=== PATIENT | female | born 1995 | race Caucasian/White ===

== ENCOUNTER 2016-11-30 13:52 | Inpatient (IN) | payer OTHER ==
[~2016-11-30] VITALS: Ht 160 cm; Wt 117.9 kg
[~2016-11-30 13:52] MED LIST: BLM PO; ESTRACE2 M1 PO; MOTRIN 600 MG600 MG PO; PREDNISONE 20MG20 MG PO; PREDNISONE10 MG PO; VALACYCLOVIR1 GM PO
--- NOTE | 2016-11-30 13:57 | NUR ---
21 Y/O FEMALE C/O "NOT FEELING WELL, MY ASTHMA ACTING UP". REPORTS HX BRONCHITIS AND PNEUMONIA AND THIS FEELS "MORE LIKE PNEUMONIA". ABLE TO COMPLETE SENTENCES IN TRIAGE. WHEEZING HEARD/VOICE HOARSE. BEST 02 IN TRIAGE 91% AFEBRILE
--- NOTE | 2016-11-30 14:17 | NUR ---
CLEAR TOP URINE SENT TO LAB. 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 O2 SAT 90-92% ROOM AIR AND TACHY RATE 100'S
--- NOTE | 2016-11-30 14:22 | NUR ---
CONSTANZA SINGH IN ROOM FOR MAGIAL
[2016-11-30] MEDS ORDERED: PROAIR HFA8.5 GM INH (14:27)
[2016-11-30] MEDS ORDERED: ALBUTEROL2.5 MG/3 M INH/SOL (14:27)
--- NOTE | 2016-11-30 14:29 | ED DYSPNEA/ASTHMA COMPLAINT ---
History of Present Illness General Chief Complaint: Wheezing/Asthma Stated Complaint: ASTHMA Source: patient, family Exam Limitations: no limitations Vital Signs & Intake/Output Vital Signs & Intake/Output Vital Signs Date Time Temp Pulse Resp B/P Pulse O2 O2 Flow FiO2 Ox Delivery Rate 11/30 1752 97.0 110 22 87 Nasal 6.0L Cannula 11/30 1708 94 Nasal 6.0L Cannula 11/30 1640 97.0 103 24 136/81 94 Nasal 6.0L Cannula 11/30 1530 Nasal 4.0L Cannula 11/30 1423 94 Nasal 2.0L Cannula 11/30 1422 108 26 164/104 94 Nasal 2.0L Cannula 11/30 1354 96.9 127 20 160/98 91 Room Air Allergies Coded Allergies: nut - unspecified (Mild, RASH 11/30/16) Uncoded Allergies: TREES DOGS CATS (RASH ON FACE 02/13/15) Reconcile Medications Albuterol Sulfate (Proair Hfa) 90 MCG HFA.AER.AD 2 PUF INH Q4-6 PRN PRN BREATHING PROBLEMS (Reported) Albuterol Sulfate 2.5 MG/3 ML (0.083 %) VIAL.NEB 1 Vial INH/RORO Q4P PRN BREATHING PROBLEMS (Reported) Estradiol (Estrace) 2 MG TABLET 1 TAB PO DAILY ESTROGEN (Reported) Triage Note: 21 Y/O FEMALE C/O "NOT FEELING WELL, MY ASTHMA ACTING UP". REPORTS HX BRONCHITIS AND PNEUMONIA AND THIS FEELS "MORE LIKE PNEUMONIA". ABLE TO COMPLETE SENTENCES IN TRIAGE. WHEEZING HEARD/VOICE HOARSE. BEST 02 IN TRIAGE 91% AFEBRILE Triage Nurses Notes Reviewed? yes Onset: Gradual Duration: worse persistent since (3-4 DAYS) Timing: recent history Severity: moderate, severe Activities at Onset: none Prior Episodes/Possible Cause: frequent episodes : No Patient currently breastfeeds: No HPI: Patient is a 21-year-old female with history of asthma, takes daily Advair and as needed albuterol for her asthma coming into the emergency department with family members with chief complaining of increasing nonproductive cough, shortness of breath with exertion and has been getting worse over the past several days. Patient was recently admitted for pneumonia 2 months ago knows it was hospitalized for 5 days. They report that it took them 5 days to get her oxygen above 90% on room air. Patient does not wear oxygen at home. Denies history of recent travel, no recent surgeries, denies any hormonal supplementation. No history of DVT or PE. Cough is nonproductive. Nothing seems to help it. She's been taking [id number] complication without relief. She feels like her chest is tight. Denies actual chest pain. No palpitations. She reports using her nebulizer treatment 6 times in a 4 hour window this morning. She reports little to no relief. She reports that this feels similar to pneumonia she's had in the past. Denies any unilateral leg swelling. (CLARISSA HENDRIX) Past History Travel History Traveled to [place] past 21 day No Medical History Any Pertinent Medical History? see below for history Neurological: HEADACHES EENT: NONE Cardiovascular: NONE Respiratory: asthma Gastrointestinal: NONE Hepatic: NONE Renal: NONE Musculoskeletal: fracture, LEG FX Psychiatric: NONE Endocrine: NONE Blood Disorders: NONE Cancer(s): NONE DIRECTOR FOOD AND BEVERAGE/Reproductive: ANTIGEN SENSITIVITY SYNDROME Tetanus Vaccine: 02/13/15 Surgical History Surgical History: hernia repair-umbilical Psychosocial History What is your primary language Latvian Tobacco Use: Never used Family History Hx Contributory? No (CLARISSA HENDRIX) Review of Systems Review of Systems Constitutional: Reports: malaise. Comments Review of systems: See HPI, All other systems negative. Constitutional, no chills fever or weight loss HEENT: No visual changes no sore throat no congestion Cardiovascular: No chest pain ,palpitation , orthopnea or ankle swelling Skin, no jaundice no rashes Respiratory: No sputum or hemoptysis GI: No nausea no vomiting : No dysuria No hematuria Muscle skeletal: no back pain, no neck pain, Neurologic: No numbness no confusion Psych: No stress anxiety or depression,. Heme/endocrine: No bruising no bleeding no polyuria or polydipsia Immunology: No splenectomy or history of AIDS (CLARISSA HENDRIX) Physical Exam Physical Exam General Appearance: well developed/nourished, no apparent distress, alert, awake , comfortable Respiratory: wheezing Comments: Obese Person in no acute distress HEENT: Normal EENT exam, extraocular motion intact, no nystagmus. Pupils equally round and reactive to light and accommodation. Nose is atraumatic. External auditory canal and Tympanic membranes clear. Pharynx normal. No swelling or edema. Moist oral mucosa. Neck: Supple, no lymphadenopathy, normal range of motion without pain or tenderness Back: NontendeR Cardiovascular: Tachycardic rate and rhythms no murmurs rubs or gallops, normal JVP Respiratory: Chest nontender. No respiratory distress.diffuse wheezing to auscultation bilaterally Extremity: No edema, no calf tenderness to palpation, normal and equal pulses. Neuro: Alert oriented x3 Skin: No appreciable rash on exposed skin, skin is warm and dry. Psych: Mood and affect is normal, memory and judgment is normal. Core Measures ACS in differential dx? No Severe Sepsis Present: No Septic Shock Present: No (CLARISSA HENDRIX) Progress Differential Diagnosis: asthma, AMI, bronchitis, CHF, musculoskeletal pain, pulmonary embolism, pneumonia, pneumothorax, PULMONARY EMBOLUS Plan of Care: Orders Procedure Date/time Status Regular Diet 11/30 D Active Admit to inpatient 11/30 1745 Active Pathway - chart 11/30 1726 Active House Staff 11/30 1726 Active Patient Data 11/30 1726 Active Code Status 11/30 1726 Active Patient Data 11/30 1658 Active BLOOD CULTURE 11/30 1511 Active Admit to inpatient 11/30 1459 Active EKG 11/30 1431 Active ARTERIAL BLOOD GAS (GEN) 11/30 1430 Active Telemetry/Research Program Coordinator 11/30 1429 Active PARTIAL THROMBOPLASTIN TIME 11/30 1427 Complete PROTHROMBIN TIME 11/30 1427 Complete MAGNESIUM 11/30 1427 Complete D-DIMER 11/30 1427 Complete COMPREHENSIVE METABOLIC PANEL 11/30 1427 Complete CBC WITHOUT DIFFERENTIAL 11/30 1427 Complete Intake & Output 11/30 1422 Active URINE 11/30 1410 Complete VTE Mechanical Prophylaxis 11/30 UNK Active Current Medications Sig/Mohinder Start time Last Medication Dose Stop Time Status Admin Acetaminophen 325 MG Q6 PRN 11/30 1730 UNVr (Tylenol) Morphine Sulfate 2 MG Q4 PRN 11/30 1730 UNVr (Morphine) Oxycodone HCl 5 MG Q6 PRN 11/30 1730 UNVr (Roxicodone) Enoxaparin Sodium 40 MG DAILY 11/30 1725 UNVr (Lovenox) Albuterol Sulfate 3 ML ONCE ONE 11/30 1600 CAN (Proventil) 11/30 1601 Albuterol Sulfate 3 ML ONCE ONE 11/30 1600 CAN (Proventil) 11/30 1601 Albuterol Sulfate 3 ML ONCE ONE 11/30 1600 CAN (Proventil) 11/30 1601 Laboratory Tests 11/30/16 1525: pH 7.40, pCO2 35, pO2 76 L, HCO3 22, ABG O2 Sat (Measured) 95.0 L, Carboxyhemoglobin 0.3 L, O2 Concentration % 4L, O2 Delivery Method NC, Phlebotomy Draw Site RIGHT RADIAL 11/30/16 1500: Anion Gap 11, Estimated GFR > 60, BUN/Creatinine Ratio 13.8, Glucose 104 H, Calcium 10.0, Magnesium 2.0, Total Bilirubin 0.4, AST 17, ALT 36, Alkaline Phosphatase 72, Total Protein 7.1, Albumin 4.2, Globulin 2.9, Albumin/Globulin Ratio 1.4, PT 11.2, INR 1.07, APTT 33, D-Dimer < 200, CBC w Diff NO MAN DIFF REQ , RBC 5.16, MCV 82.6, MCH 27.8, RDW 14.6 H, MPV 8.0, Gran % 57.9, Lymphocytes % 25.5, Monocytes % 5.8, Eosinophils % 10.1 H, Basophils % 0.7, Absolute Granulocytes 5.9, Absolute Lymphocytes 2.6, Absolute Monocytes 0.6, Absolute Eosinophils 1.0, Absolute Basophils 0.1, PUBS MCHC 33.7 11/30/16 1417: Urine Test NEGATIVE Microbiology 11/30 1548 BLOOD: Blood Culture - RECD 11/30 1540 BLOOD: Blood Culture - RECD Diagnostic Imaging: Viewed by Me: Radiology Read. Discussed w/RAD: Radiology Read. CXR Impression: LEFT LOWER LOBE PNEUMONIA Initial ED EKG: SINUS TACHYCARDIA Comments: 11/30/2016 2:43:01 PMOn arrival patient hypoxic on room air to 85%, diffuse wheezing with mild respiratory distress. Patient given DuoNeb treatment with IV SOLU Medrol. We will obtain an ABG, CBC, CMP. Patient will go for a chest x- ray to see if pneumonia is developing. Patient afebrile this time. 11/30/2016 3:03:36 PM patient remains in the low 90s upper 80s on 6 L nasal cannula. Per respiratory therapist she doesn't think continuous nebulizers will help us patientS wheezing has improved. Moving better air. Patient will need continued treatments throughout her visit along with steroids. 11/30/2016 5:43:08 PM patient will be admitted to general medicine for peripheral admission for pneumonia, hypoxia. Patient requiring serial DuoNeb treatments, IV steroids, IV antibiotics. Pulmonology consultation. Discharge at this time would be medically harmful. Patient informed of all lab work results and imaging study results. D-dimer is negative. (CLARISSA HENDRIX) Departure Departure Time of Disposition: 1553 Disposition: STILL A PATIENT Condition: Stable Clinical Impression Primary Impression: Pneumonia Qualifiers: Pneumonia type: due to unspecified organism Laterality: left Lung location: lower lobe of lung Qualified Code: J18.1 - Lobar pneumonia, unspecified organism Secondary Impressions: Asthma exacerbation, Hypoxia Referrals: MALLORIE FRENCH,SHEYLA (PCP/Family) Departure Forms: Customer Survey General Discharge Information Admission Note Spoke With: DEVEN CAIN MD Documentation of Exam: Documentation of any treatments & extenuating circumstances including Concerns Regarding Discharge (functional status, medication knowledge or non-compliance, living conditions, etc.) that warrant an admission rather than observation: Patient requiring supplemental oxygen which is new for this patient, IV steroids , IV antibiotics, blood cultures to return. Pulmonology consultation. Discharge at this time would be medically harmful as patient's oxygen on room air dips to 85% while being stationary. (CLARISSA HENDRIX) PA/ELECTROTHERAPIST Co-Sign Statement Statement: ED Attending supervision documentation- [X] I saw and evaluated the patient. I have also reviewed all the pertinent lab results and diagnostic results. I agree with the findings and the plan of care as documented in the PA's/ELECTROTHERAPIST's documentation. [X] I have reviewed the ED Record and agree with the PA's/ELECTROTHERAPIST's documentation. [] Additions or exceptions (if any) to the PAs/ELECTROTHERAPIST's note and plan are summarized below: [] (RUDI FRENCH,GEETA Dow) Critical Care Note Critical Care Note Critical Care Time: 30-74 min (CLARISSA HENDRIX)
--- NOTE | 2016-11-30 15:05 | NUR ---
LG BORE IV ESTABLISHED FOR POSSIBLE CTA. LABS DRAWN AND SENT (BLUE, SSTX2, LAV) AND RESP THERAPIST PAGED FOR TX. PT REMAINS 90-91% ON 2LNC AND TITRATED UP TO 4LNC AND O2 SAT 94-95% AT THIS TIME. MEDICATED WITH SOLUMEDROL PER [facility] FAMILY AT BEDSIDE.
--- NOTE | 2016-11-30 15:09 | RADIOLOGY REPORT ---
EXAMINATION: XR CHEST 2 VIEWS CLINICAL INFORMATION: Wheezing and shortness of breath; question pneumonia or asthma exacerbation. COMPARISON: Chest radiographs dated 12/03/2015. TECHNIQUE: Frontal and lateral views of the chest were obtained. FINDINGS: The heart, great vessels, pulmonary vasculature and mediastinum are normal. There is an early infiltrate at the left base on the frontal view. The right lung field appears clear. There is no pleural effusion or pneumothorax. There is no acute osseous abnormality. IMPRESSION: Findings are consistent with an early left base infiltrate. Recommend short-term follow-up chest radiographs to ensure clearance. A preliminary report was provided by the manufacturers agent on 11/30/2016.
[2016-11-30 15:29] LABS: ABSOLUTE BASOPHIL COUNT 0.1 /CUMM (0.0-0.2); ABSOLUTE GRANULOCYTE CT 5.9 /CUMM (1.4-6.5); ABSOLUTE LYMPH COUNT 2.6 /CUMM (1.2-3.4); ABSOLUTE MONOCYTE COUNT 0.6 /CUMM (0.10-0.60); BASOPHIL % 0.7 % (0.0-2.0); EOSINOPHIL % 10.1 % (0-5); GRANULOCYTE % 57.9 % (42.2-75.2); HEMATOCRIT 42.6 % (37-47); MEAN CORPUSCULAR HGB 27.8 PG (27.0-31.0); MEAN CORPUSCULAR HGB CONC 33.7 G/DL (33.0-37.0); MEAN CORPUSCULAR VOLUME 82.6 FL (81.0-99.0); PLATELET COUNT 367 /CUMM (130-400); RBC DISTRIBUTION WIDTH 14.6 % (11.5-14.5); RED BLOOD CELL CT 5.16 /CUMM (4.20-5.40); WHITE BLOOD CELL COUNT 10.1 /CUMM (4.8-10.8)
[2016-11-30 15:33] LABS: PT 11.2 SEC (9.4-12.5); PTT 33 SEC (25-37)
--- NOTE | 2016-11-30 16:23 | NUR ---
MEDICATED WITH ZITHRO PER [facility]
--- NOTE | 2016-11-30 17:02 | History & Physical ---
EPIFANIO FRENCH,SIOBHAN 11/30/16 1692: General Information and HPI MD Statement: I have seen and personally examined GEMINI LEMOS and documented this H&P. The patient is a 21 year old F who presented with shortness of breath and cough. Source of Information: patient, family Exam Limitations: no limitations History of Present Illness: 21-year-old female with past medical history of asthma and a recent admission for pneumonia 2 months ago, came into the emergency department with history of 2 days of worsening shortness of breath, productive cough. According to patient, and her father, who was present during the interview, patient was in her usual state of health after being discharged from another hospital for pneumonia on antibiotic about 2 months ago. She required IV antibiotics and steroids for a total of 5 days in the hospital for that episode. She started developing cough with greenish sputum and shortness of breath since 2 days. She has a history of asthma and has been taking inhalers multiple times (according to patient, her results of times in the past 2 days), but could not relieve her symptoms. She did mention that she felt heaviness over her chest when her shortness of breath is worse, which has improved now. She denies any fever, chills, headache, chest pain, palpitation, tiredness, any sick contacts, recent travels, rash, swelling of her feet. 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 Allergies/Medications Allergies: Coded Allergies: nut - unspecified (Mild, RASH 11/30/16) Uncoded Allergies: TREES DOGS CATS (RASH ON FACE 02/13/15) Home Med list Albuterol Sulfate (Proair Hfa) 90 MCG HFA.AER.AD 2 PUF INH Q4-6 PRN PRN BREATHING PROBLEMS (Reported) Albuterol Sulfate 2.5 MG/3 ML (0.083 %) VIAL.NEB 1 Vial INH/RORO Q4P PRN BREATHING PROBLEMS (Reported) Estradiol (Estrace) 2 MG TABLET 1 TAB PO DAILY ESTROGEN (Reported) Past History Travel History Traveled to [place] past 21 day No Medical History Neurological: HEADACHES EENT: NONE Cardiovascular: NONE Respiratory: asthma Gastrointestinal: NONE Hepatic: NONE Renal: NONE Musculoskeletal: fracture, LEG FX Psychiatric: NONE Endocrine: NONE Blood Disorders: NONE Cancer(s): NONE CELL OPERATOR/Reproductive: ANTIGEN SENSITIVITY SYNDROME Tetanus Vaccine: 02/13/15 Surgical History Surgical History: hernia repair-umbilical Past Family/Social History Psychosocial History Where do you live? Home Who Do You Live With? parent Primary Language: British Smoking Status: Never Smoked ETOH Use: denies use Illicit Drug Use: denies illicit drug use Functional Ability ADLs Independent: dressing, eating, toileting, bathing. Ambulation: independent IADLs Independent: shopping, housework, finances, food prep, telephone, transportation , medication admin. Employment History Employment Employed Profession/Employer Restaurant Kitchen Manager Review of Systems Review of Systems Constitutional: Reports: see HPI. EENTM: Reports: no symptoms. Cardiovascular: Reports: no symptoms. Respiratory: Reports: see HPI. GI: Reports: no symptoms. Genitourinary: Reports: no symptoms. Musculoskeletal: Reports: no symptoms. Skin: Reports: no symptoms. Neurological/Psychological: Reports: no symptoms. Hematologic/Endocrine: Reports: no symptoms. Exam & Diagnostic Data Last 24 Hrs of Vital Signs/I&O Vital Signs Date Time Temp Pulse Resp B/P Pulse O2 O2 Flow FiO2 Ox Delivery Rate 11/30 2005 97.0 101 18 132/78 97 Nasal 6.0L Cannula 11/30 1943 104 22 93 Nasal 6.0L Cannula 11/30 1837 97.0 101 18 138/83 94 Nasal 6.0L Cannula 11/30 1752 97.0 110 22 87 Nasal 6.0L Cannula 11/30 1708 94 Nasal 6.0L Cannula 11/30 1640 97.0 103 24 136/81 94 Nasal 6.0L Cannula 11/30 1530 Nasal 4.0L Cannula 11/30 1423 94 Nasal 2.0L Cannula 11/30 1422 108 26 164/104 94 Nasal 2.0L Cannula 11/30 1354 96.9 127 20 160/98 91 Room Air Intake & Output 11/30 1600 11/30 0800 11/30 0000 Intake Total Output Total Balance Patient 117.934 kg Weight Last 24 Hrs of Labs/Murali: Laboratory Tests 11/30/16 1525: pH 7.40, pCO2 35, pO2 76 L, HCO3 22, ABG O2 Sat (Measured) 95.0 L, Carboxyhemoglobin 0.3 L, O2 Concentration % 4L, O2 Delivery Method NC, Phlebotomy Draw Site RIGHT RADIAL 11/30/16 1500: Anion Gap 11, Estimated GFR > 60, BUN/Creatinine Ratio 13.8, Glucose 104 H, Calcium 10.0, Magnesium 2.0, Total Bilirubin 0.4, AST 17, ALT 36, Alkaline Phosphatase 72, Total Protein 7.1, Albumin 4.2, Globulin 2.9, Albumin/Globulin Ratio 1.4, PT 11.2, INR 1.07, APTT 33, D-Dimer < 200, CBC w Diff NO MAN DIFF REQ , RBC 5.16, MCV 82.6, MCH 27.8, RDW 14.6 H, MPV 8.0, Gran % 57.9, Lymphocytes % 25.5, Monocytes % 5.8, Eosinophils % 10.1 H, Basophils % 0.7, Absolute Granulocytes 5.9, Absolute Lymphocytes 2.6, Absolute Monocytes 0.6, Absolute Eosinophils 1.0, Absolute Basophils 0.1, PUBS MCHC 33.7 11/30/16 1417: Urine Test NEGATIVE Microbiology 11/30 2101 NASOPHARYN: Influenza Virus A & B Rapid Smear - RECD 11/30 1945 URINE ROUT: Legionella Antigen - COLB 11/30 1945 URINE ROUT: Streptococcus pneumoniae Antigen (M - COLB 11/30 1548 BLOOD: Blood Culture - RECD 11/30 1540 BLOOD: Blood Culture - RECD Diagnostic Data CXR Results Findings are consistent with an early left base infiltrate. Recommend short-term follow-up chest radiographs to ensure clearance. A preliminary report was provided by the certified phlebotomy technician on 11/30/2016. DICTATED BY: JESSIE GAFFNEY MD DATE/TIME DICTATED:11/30/161499 RESIDENTIAL FIELD MANAGER:LULA DATE/TIME TRANSCRIBED:11/30/161499 Other Results Physical examnination: General: obese patient, not in distress Head: Normocephalic, atraumatic Eyes: Pupils normal in size, regular, reacting to light and accommodation, EOM normal Ears: B/l normal on inspection Nose: Normal on inspection Throat/mouth: Moist mucosa Neck: Supple, full range of motion, no thyromegaly Heart: Regular rate, regular rhythm Lung: breath sound bilaterally with wheezes present, jacqueline over the back and base of lungs Abd: Soft, non-tender, no distention appreciated Back: Normal range of motion Extremities: Normal knee exam bilaterally, no pedal edema, Distal neurovascular intact Neurologic: Alert, oriented x3, Cranial exam grossly intact, Speech is clear and coherent Skin: Warm and dry Psychiatric: Calm, cooperative, coherant Assessment/Plan Assessment: 21-year-old female with past medical history of asthma and a recent admission for pneumonia 2 months ago, came into the emergency department with history of 2 days of worsening shortness of breath, productive cough. She was tachycardic to 127, tachypneic at 20, blood pressure was 160/98, temperature 96.9 and was saturating at 76% on room air upon admission to the emergency department, her ABG showed hypoxia with PO2 of 76, lab was only significant for high eosinophilia 10.1%, no leukocytosis.Chest x-ray is consistent with early left base infiltrate, suggestive of pneumonia. Blood and sputum cultures were sent. Patient received nebulizations, magnesium sulfate, IV antibiotics in the emergency department. Patient is currently being managed in the general medical floor for the following issues: #Acute hypoxic respiratory failure, secondary to asthma exacerbation and possible community-acquired pneumonia With vitals mentioned above, and hypoxia prone by her ABG, patient does seem to have respiratory failure. The reason for her failure could be due to asthma exacerbation, at the same time, could be due to developing community-acquired pneumonia. -Tolerate saturations above 92% -Total respiratory care/nebs -IV antibiotics to cover community-acquired pneumonia -IV steroids Solu-Medrol 40 MG every 12 hours, with a plan to taper according to patient's -We'll check a flu swab, urine Legionella and strep -Follow up blood and sputum cultures and plan to taper antibiotics accordingly -Pulmonary consultation with her office technology instructor Dr. Reilly in the morning #Diet regular diet #DVT prophylaxis subcutaneous Lovenox #Full CODE STATUS As Ranked By This Provider Problem List: 1. Asthma exacerbation 2. Pneumonia Qualifiers Pneumonia type: due to unspecified organism Laterality: left Lung location: lower lobe of lung Qualified Code: J18.1 - Lobar pneumonia, unspecified organism Core Measures/Miscellaneous Acute Coronary Syndrome ACS Diagnosis: No Cerebrovascular Accident CVA/TIA Diagnosis: No Congestive Heart Failure CHF Diagnosis: No Venous Thromboembolism VTE Risk Factors: Oral contraception No Mech VTE prophylaxis d/t: No contraindications No VTE Pharm Prophylaxis d/t: No contraindications VTE Diagnosis: No VTE Type: NONE VTE Confirmed by (Test): NONE Severe Sepsis Severe Sepsis Present: No Septic Shock Septic Shock Present: No Miscellaneous Documentation Attending Case Discussed With: ANT FRENCH,DEVEN Em Primary Care Physician: SHEYLA NOBLES MD Patient sees these Specialists Internal medicine Level of Patient Care: General Medicine ISABEL RONQUILLO 11/30/161920: Resident Review Statement Resident Statement: examined this patient, discussed with internal communications manager Other Findings: Patient is a 21-year-old female with past medical history of asthma, bronchitis, multiple allergies who presented to the ED with a chief complaint of worsening shortness of breath, wheezing and generalized malaise and fatigue. Patient states that for the past 2 days she has been very short of breath and felt as if her asthma had flared up. She is wheezing and using her inhaler multiple times throughout the day. She was not feeling well, was nauseated and had about 3 episodes of vomiting yesterday. She denies waking up in the night but admits to using her nebulizers every few minutes in the past 2 days. Denies any fevers, palpitations, headache, abdominal pain, urinary or bowel symptoms. She has been having some chills and did admit to having some productive cough with greenish sputum. She has some mild nonspecific chest discomfort in the epigastric region which she thinks is secondary to her coughing. She had a similar episode of asthma flare about 2 months ago and was treated at [facility] for asthma exacerbation and pneumonia. Severe she was on IV antibiotics and discharged home on by mouth antibiotics however the patient isn' t a member the name of the antibiotic. Denies any sick contacts and recent travels. Patient lives with her dad and has family history of asthma in her brother. She works as a registrar at a local office. Follows up with Dr. Reilly who is her pulmonology physician. Patient states that she has severe allergies to multiple things and she her allergies are acting up. In the ED vitals showed a temperature 96.9, pulse 127, respiration 20, blood pressure 160/98, saturating 91% on room air. She desatted and her oxygen was put up to 6 L. Labs showed a normal white count with predominant eosinophilia, normal chemistries. Urine test was negative. Blood gas 7.40/35/76 CXR:early left base infiltrate. Examination: Gen.: Awake alert, oriented, mild distress, speaking in full sentences. HEENT: Nasal cannula, PERRLA, EOMI Chest: Occasional rhonchi, no wheezing CVS: S1 and S2 heard, no murmurs rubs or gallops Extremities: No rash, mild erythema over the left lower arm. PLAN: 1.Acute hypoxic respiratory failure secondary to asthma exacerbation and Pneumonia. Patient received TRC nebs, IV magnesium sulfate, IV antibiotics, IV Solu-Medrol in the ED. -Admit patient to [facility] -Vitals every shift -Keep oxygen saturations above 92% -TRC nebs [id number] -Patient got 125 mg Solu-Medrol in the ED, we will continue 40MG IV every 8 for now -Continue IV ceftriaxone and IV azithromycin to cover for community-acquired pneumonia -Check a flu swab -Follow up blood and sputum cultures -Strep and legionella and urine -Pulmonary consult with Dr. Torres in a.m. Continue regular diet DVT prophylaxis subcutaneous Lovenox Mild pain pathway Full code DEVEN CAIN MD 11/30/16 2105: Attending MD Review Statement Attending Statement Attending MD Statement: examined this patient, discuss w/resident/PA/PBX TEACHER, agreed w/resident/PA/PBX TEACHER, discussed with family, reviewed EMR data (avail), reviewed images Attending Assessment/Plan: 21-year-old young woman with past medical history of asthma who is here with what appears to be an asthma exacerbation with a left lower lobe pneumonia. She got antibiotics and steroids and nebulizers in the ER. She was fairly hypoxemic with a PO2 of 76 on room air. We will need to administer IV steroids, IV antibiotics and watch the O2 status and the respiratory status closely. We'll give her TRC with nebs. Of note her white count is elevated but the large percentage of eosinophils and she'll need an outpatient workup/follow-up for this. It may all be likely to the asthma but it needs to be followed up. I believe the elevated blood pressure on admission was secondary to the respiratory distress and we can safely follow that off any medications DVT prophylaxis and Pulm eval in am
--- NOTE | 2016-11-30 17:10 | NUR ---
MAG GTT COMPLETE, REPORTS IMPROVEMENT IN SYMPTOMS. PT OFFERED HOSPITAL GOWN AND NON-SLIP SOCKS BUT DECLINED, REQUESTING TO STAY IN PERSONAL CLOTHES AND SHOES REAPPLIED
--- NOTE | 2016-11-30 17:50 | NUR ---
PT TOLERATING HUMIDIFIED CONTINUOUS NEB AT THIS TIME. O2 SAT 86-90% ON 6LNC AT THIS TIME AND DR RUDI GREEN AND MOD AWARE OF SATS
--- NOTE | 2016-11-30 19:36 | NUR ---
PT'S MOTHER INQUIRING ABOUT DIAGNOSIS, PLAN AND ASSESSMENT FINDINGS. WISHING TO SPEAK WITH DOCTOR. HOUSE STAFF MD PAGED.
--- NOTE | 2016-11-30 19:47 | NUR ---
BED ASSIGNMENT [id number]
--- NOTE | 2016-11-30 20:32 | NUR ---
REPORT GIVEN TO RECEIVING STEPHANI JOAQUIN, STATES ROOM WILL NOT BE READY FOR AT LEAST AN HOUR AND WILL CALL ED TO UPDATE WHEN PT CAN GO UPSTAIRS.
--- NOTE | 2016-11-30 20:46 | NUR ---
CLEAR TUBE OF URINE NEEDED PER LAB, STEPHANI LEA NOTIFIED
--- NOTE | 2016-11-30 21:06 | NUR ---
MOD PAGED REGARDING MOM ASKING FOR UPDATE. FLU SWAB OBTAINED AND SENT AND PT PROVIDING ADDITIONAL URINE SAMPLE FOR TESTING
--- NOTE | 2016-11-30 21:07 | Admission Certification ---
Admission Certification Certification Statement - As attending physician, I certify that at the time of - admission, based on clinical presentation, severity of - symptoms, need for further diagnostic testing and - therapeutic interventions, and risk of adverse outcomes - without in-hospital treatment, in my clinical assessment, - this patient requires an acute hospital stay for a minimum - of two nights or longer. I have also considered psychsocial - factors such as support system, advanced age, financial - issues, cognitive issues, and failed out-patient treatments, - past re-admission history, safety of patient, and lack of - compliance as applicable. Specific rationale supporting this admission is: Acute asthma exacerbation with pneumonia, needs IV steroids and IV abx
--- NOTE | 2016-11-30 21:15 | NUR ---
AMBULATORY O2 SAT DECREASED TO 85% ON ROOM AIR. PT DENIES SOB OR DYSPNEA. IMPROVED TO 95% ON 6L HUMIDIFIED NC. REPORTS IMPROVEMENT IN SYMPTOMS. GEN MED RESIDENT AT BEDSIDE TO DISCUSS TEST RESULTS, PLAN OF CARE AND INTERVENTIONS FOR PATIENT. REMAINS STABLE AND AAOX3
--- NOTE | 2016-11-30 21:25 | NUR ---
CLEAN CATCH URINE SENT TO LAB. RT PAGED FOR ALBUTEROL TX.
--- NOTE | 2016-11-30 22:07 | NUR ---
MEDICATED WITH SOLU PER eMAR. TOLERATING WELL, DENIES SOB AT THIS TIME. SPEAKING IN FULL SENTENCES. UPDATE GIVEN TO RECEIVING RN AND MESSAGE LEFT WITH DISTRIBUTION
[2016-11-30 23:41] VITALS: BP 134/60
--- NOTE | 2016-12-01 07:07 | PN- Housestaff ---
Subjective Follow-up For: Asthma exacerbation, community acquired pneumonia Complaints: no complaints Subjective: I followed him and examined the patient today. She is lying comfortably in the bed, not in any acute respiratory distress, does not have any complaints, vitals stable overnight, still on oxygen via nasal cannula, no rashes/itching. No fever, chest pain, palpitation, overnight and shortness of breath has significantly reduced. Review of Systems Constitutional: Reports: no symptoms. EENTM: Reports: no symptoms. Cardiovascular: Reports: no symptoms. Respiratory: Reports: see HPI. Gastrointestinal: Reports: no symptoms. Genitourinary: Reports: no symptoms. Musculoskeletal: Reports: no symptoms. Skin: Reports: no symptoms. Neurological/Psychological: Reports: no symptoms. Hematologic/Endocrine: Reports: no symptoms. Objective Last 24 Hrs of Vital Signs/I&O Vital Signs Date Time Temp Pulse Resp B/P Pulse O2 O2 Flow FiO2 Ox Delivery Rate 12/01 1238 94 Nasal 3.0L Cannula 12/01 1130 Nasal 3.0L Cannula 12/01 1000 94 Nasal 4.0L Cannula 12/01 0830 95 Nasal 5.0L Cannula 12/01 0800 94 Nasal 4.0L Cannula 12/01 0731 97.4 102 20 140/70 96 Nasal 5.0L Cannula 12/01 0000 Nasal 5.0L Cannula 11/30 2341 97.9 117 20 134/60 95 Nasal 5.0L Cannula 11/307 96 Nasal 6.0L Cannula 12/01 2115 97.1 116 22 144/78 95 Nasal 6.0L Cannula 11/30 2005 97.0 101 18 132/78 97 Nasal 6.0L Cannula 11/30 1943 104 22 93 Nasal 6.0L Cannula 11/30 1837 97.0 101 18 138/83 94 Nasal 6.0L Cannula 11/30 1752 97.0 110 22 87 Nasal 6.0L Cannula 11/30 1708 94 Nasal 6.0L Cannula 11/30 1640 97.0 103 24 136/81 94 Nasal 6.0L Cannula 11/30 1530 Nasal 4.0L Cannula 11/30 1423 94 Nasal 2.0L Cannula 11/30 1422 108 26 164/104 94 Nasal 2.0L Cannula Intake & Output 12/01 1600 12/01 0800 12/01 0000 Intake Total 400 120 Output Total Balance 400 120 Intake, IV 20 Intake, Oral 400 100 Patient 117.934 kg Weight Physical Exam General Appearance: Alert, Oriented X3, Cooperative, No Acute Distress Other Physical Findings: General: obese patient, not in resp distress Head: Normocephalic, atraumatic Eyes: Pupils normal in size, regular, reacting to light and accommodation, EOM normal Ears: B/l normal on inspection Nose: Normal on inspection Throat/mouth: Moist mucosa Neck: Supple, full range of motion, no thyromegaly Heart: Regular rate, regular rhythm Lung: breath sound bilaterally with wheezes present but less than yesterday Abd: Soft, non-tender, no distention appreciated Back: Normal range of motion Extremities: Normal knee exam bilaterally, no pedal edema, Distal neurovascular intact Neurologic: Alert, oriented x3, Cranial exam grossly intact, Speech is clear and coherent Skin: Warm and dry Psychiatric: Calm, cooperative, coherant Current Medications: Current Medications Sig/Mohinder Start time Last Medication Dose Route Stop Time Status Admin Acetaminophen 325 MG Q6P PRN 11/30 1730 AC PO Albuterol Sulfate 3 ML EVERY 4 HRS/AWAKE 12/01 1200 AC 12/01 INH 1131 Albuterol Sulfate 3 ML ONCE ONE 11/30 2130 DC 11/30 INH 11/30 213 2127 Albuterol Sulfate 2 PUF Q4-6 PRN PRN 11/30 2000 AC INH Albuterol Sulfate 3 ML Q4P PRN 11/30 2000 DC INH Albuterol Sulfate 3 ML ONCE ONE 11/30 1745 DC INH 11/30 1746 Albuterol Sulfate 3 ML ONCE ONE 11/30 1600 CAN INH 11/30 1601 Albuterol Sulfate 3 ML ONCE ONE 11/30 1600 CAN INH 11/30 1601 Albuterol Sulfate 3 ML ONCE ONE 11/30 1600 CAN INH 11/30 1601 Albuterol Sulfate 3 ML ONCE ONE 11/30 1430 DC 11/30 INH 11/30 1431 1520 Azithromycin 500 MG DAILY 12/01 1000 AC 12/01 Sodium Chloride 250 ML IV 1040 Azithromycin 500 MG ONCE ONE 11/30 1515 DC 11/30 Sodium Chloride 250 ML IV 11/30 1614 1623 Ceftriaxone Sodium 1,000 MG DAILY 12/01 1000 AC 12/01 IV 1039 Ceftriaxone Sodium 0 .STK-MED ONE 11/30 1554 DC .ROUTE Ceftriaxone Sodium 1,000 MG ONCE ONE 11/30 1515 DC 11/30 IV 11/30 1516 1555 Diphenhydramine HCl 0 .STK-MED ONE 11/30 1836 DC .ROUTE Diphenhydramine HCl 25 MG ONCE ONE 11/30 1830 DC 11/30 IV 11/30 1831 1837 Enoxaparin Sodium 40 MG DAILY 11/30 1725 AC 12/01 SC 1040 Estradiol 2 MG DAILY 12/01 1000 AC 12/01 PO 1040 Influenza Virus 0.5 ML ONCE ONE 12/01 1200 DC Vaccine IM 12/01 1201 Ipratropium [place] 2.5 ML EVERY 4 HRS/AWAKE 12/01 1200 AC 12/01 INH 1131 Ipratropium [place] 2.5 ML ONCE ONE 11/30 1445 DC 11/30 INH 11/30 1446 1520 Magnesium Sulfate 0 .STK-MED ONE 11/30 1639 DC .ROUTE Magnesium Sulfate 2 GM ONCE ONE 11/30 1600 DC 11/30 IV 11/30 1601 1640 Methylprednisolone 0 .STK-MED ONE 11/30 2204 DC .ROUTE Methylprednisolone 40 MG Q8 11/30 2200 AC 12/01 IV 0632 Methylprednisolone 0 .STK-MED ONE 11/30 1444 DC .ROUTE Methylprednisolone 125 MG ONCE ONE 11/30 1430 DC 11/30 IV 11/30 1431 1505 Morphine Sulfate 2 MG Q4P PRN 11/30 1730 AC IV Oxycodone HCl 5 MG Q6P PRN 11/30 1730 AC PO Patient Medication 1 ED .STK-MED ONE 12/01 1358 DC Teaching ED 12/01 1359 Last 24 Hrs of Lab/Murali Results Last 24 Hrs of Labs/Mics: Laboratory Tests 12/01/16 0637: Anion Gap 10, Estimated GFR > 60, BUN/Creatinine Ratio 15.0, CBC w Diff NO MAN DIFF REQ, RBC 5.16, MCV 82.9, MCH 27.4, RDW 14.6 H, MPV 8.1, Gran % 90.5 H, Lymphocytes % 7.5 L, Monocytes % 1.8, Eosinophils % 0.1, Basophils % 0.1, Absolute Granulocytes 12.6 H, Absolute Lymphocytes 1.0 L, Absolute Monocytes 0.2, Absolute Eosinophils 0, Absolute Basophils 0, PUBS MCHC 33.1 11/30/16 1525: pH 7.40, pCO2 35, pO2 76 L, HCO3 22, ABG O2 Sat (Measured) 95.0 L, Carboxyhemoglobin 0.3 L, O2 Concentration % 4L, O2 Delivery Method NC, Phlebotomy Draw Site RIGHT RADIAL 11/30/16 1500: Anion Gap 11, Estimated GFR > 60, BUN/Creatinine Ratio 13.8, Glucose 104 H, Calcium 10.0, Magnesium 2.0, Total Bilirubin 0.4, AST 17, ALT 36, Alkaline Phosphatase 72, Total Protein 7.1, Albumin 4.2, Globulin 2.9, Albumin/Globulin Ratio 1.4, PT 11.2, INR 1.07, APTT 33, D-Dimer < 200, CBC w Diff NO MAN DIFF REQ , RBC 5.16, MCV 82.6, MCH 27.8, RDW 14.6 H, MPV 8.0, Gran % 57.9, Lymphocytes % 25.5, Monocytes % 5.8, Eosinophils % 10.1 H, Basophils % 0.7, Absolute Granulocytes 5.9, Absolute Lymphocytes 2.6, Absolute Monocytes 0.6, Absolute Eosinophils 1.0, Absolute Basophils 0.1, PUBS MCHC 33.7 11/30/16 1417: Urine Test NEGATIVE Microbiology 12/01 1215 LOWER RESP: Respiratory Culture - RES 12/01 121 LOWER RESP: Gram Stain - RES 11/30 2109 URINE ROUT: Legionella Antigen - COMP 11/30 2109 URINE ROUT: Streptococcus pneumoniae Antigen (M - COMP 11/30 2101 NASOPHARYN: Influenza Virus A & B Rapid Smear - COMP 11/30 1548 BLOOD: Blood Culture - RES 11/30 1540 BLOOD: Blood Culture - RES Assessment/Plan Assessment: 21-year-old female with past medical history of asthma and a recent admission for pneumonia 2 months ago, came into the emergency department with history of 2 days of worsening shortness of breath, productive cough. She was tachycardic to 127, tachypneic at 20, blood pressure was 160/98, temperature 96.9 and was saturating at 76% on room air upon admission to the emergency department, her ABG showed hypoxia with PO2 of 76, lab was only significant for high eosinophilia 10.1%, no leukocytosis.Chest x-ray is consistent with early left base infiltrate, suggestive of pneumonia. Blood and sputum cultures were sent. Patient received nebulizations, magnesium sulfate, IV antibiotics in the emergency department. Patient is currently being managed in the general medical floor for the following issues: #Acute hypoxic respiratory failure, secondary to asthma exacerbation and possible community-acquired pneumonia Patient seems to be improving already today, with decreased wheezes, and no respiratory distress anymore. Flu swab, urine Legionella and strep were negative. Her total WBC count is 13.9, an increase from 10.1 yesterday, which can be partly explained by the use of steroids. -Pulmonary consultation with Dr. Meza was requested and she got a sinus x-ray as suggested. it is equivocal about sinusitis. -Sputum culture was sent; not sure it would help much given the fact that the patient is already on antibiotic. -[place] O2 saturation above 92% -Continue total respiratory care/nebs -Continue IV antibiotics to cover community-acquired pneumonia -Change IV steroids Solu-Medrol 40 MG every 12 hours to every 8 hours -Follow up blood and sputum cultures and plan to taper antibiotics accordingly -Pulmonary consultation appreciated #Diet regular diet #DVT prophylaxis subcutaneous Lovenox #Full CODE STATUS Problem List: 1. Asthma exacerbation 2. Hypoxia 3. Pneumonia Pain Ratin Pain Location: - Pain Goal: Remain pain free Pain Plan: prn Tomorrow's Labs & Rationales: CBC to follow up on her increasing count, may be due to steroids too
[2016-12-01 07:31] VITALS: BP 140/70
[2016-12-01 07:56] LABS: ABSOLUTE BASOPHIL COUNT 0 /CUMM (0.0-0.2); ABSOLUTE EOSINOPHIL COUNT 0 /CUMM (0.0-0.7); ABSOLUTE GRANULOCYTE CT 12.6 /CUMM (1.4-6.5); ABSOLUTE MONOCYTE COUNT 0.2 /CUMM (0.10-0.60); BASOPHIL % 0.1 % (0.0-2.0); EOSINOPHIL % 0.1 % (0-5); HEMATOCRIT 42.8 % (37-47); MEAN CORPUSCULAR HGB 27.4 PG (27.0-31.0); MEAN CORPUSCULAR HGB CONC 33.1 G/DL (33.0-37.0); MEAN CORPUSCULAR VOLUME 82.9 FL (81.0-99.0); MEAN PLATELET VOLUME 8.1 FL (7.4-10.4); PLATELET COUNT 348 /CUMM (130-400); RBC DISTRIBUTION WIDTH 14.6 % (11.5-14.5); RED BLOOD CELL CT 5.16 /CUMM (4.20-5.40)
[2016-12-01 08:00] LABS: GRANULOCYTE % 90.5 % (42.2-75.2)
--- NOTE | 2016-12-01 08:58 | Cons- Pulmonary ---
General Information and HPI Consulting Request Date of Consult: 12/01/16 Requested By: monica Reason for Consult: Hypoxic respiratory failure History of Present Illness: Patient is a 21-year-old woman evaluated in May 2016 for cough wheezing and shortness of breath she was felt poorly controlled asthma been previously seen in the emergency room treated with albuterol differential steroids and antibiotics/chest requested. She was hospitalized in early September 2015 referring hospital for asthma exacerbation requiring supplemental oxygen associate with left lower lobe pneumonia. She reports having run out of her Advair approximately a week ago with increasing cough breath emergency room she was found hypoxic and required nasal oxygen. Her chest x-ray shows a small left lower lobe density which may be residual from her prior pneumonia these grafts were very hospital should be sought. Allergies/Medications Allergies: Coded Allergies: nut - unspecified (Mild, RASH 11/30/16) Uncoded Allergies: TREES DOGS CATS (RASH ON FACE 02/13/15) Home Med List: Albuterol Sulfate (Proair Hfa) 90 MCG HFA.AER.AD 2 PUF INH Q4-6 PRN PRN BREATHING PROBLEMS (Reported) Albuterol Sulfate 2.5 MG/3 ML (0.083 %) VIAL.NEB 1 Vial INH/RORO Q4P PRN BREATHING PROBLEMS (Reported) Estradiol (Estrace) 2 MG TABLET 1 TAB PO DAILY ESTROGEN (Reported) Review of Systems Review of Systems Constitutional: Denies: chills, fever. Cardiovascular: Denies: chest pain, edema. Respiratory: Reports: cough, short of breath, sputum production, wheezing. GI: Denies: abdominal pain, diarrhea. Past History Travel History Traveled to [place] past 21 day No Medical History Blood Transfusion Hx: No Neurological: HEADACHES EENT: EAR INFECTIONS Cardiovascular: NONE Respiratory: bronchitis, pneumonia Gastrointestinal: NONE Hepatic: NONE Renal: NONE Musculoskeletal: fracture, R LEG FX Psychiatric: NONE Endocrine: NONE Blood Disorders: NONE Cancer(s): NONE MEAT STUFFER/Reproductive: ANTIGEN SENSITIVITY SYNDROME Surgical History Surgical History: hernia repair-umbilical Psychosocial History Where Do You Live? Home Who Do You Live With? parent Services at Home: None Primary Language: Malagasy Smoking Status: Never Smoked ETOH Use: denies use Illicit Drug Use: denies illicit drug use Functional Ability ADLs Independent: dressing, eating, toileting, bathing. Ambulation: independent IADLs Independent: shopping, housework, finances, food prep, telephone, transportation , medication admin. Employment History Employment: Employed Profession/Employer: [employer] Exam & Diagnostic Data Last 24 Hrs of Vital Signs/I&O Vital Signs Date Time Temp Pulse Resp B/P Pulse O2 O2 Flow FiO2 Ox Delivery Rate 12/01 0731 97.4 102 20 140/70 96 Nasal 5.0L Cannula 12/01 0000 Nasal 5.0L Cannula 11/30 2341 97.9 117 20 134/60 95 Nasal 5.0L Cannula 11/307 96 Nasal 6.0L Cannula 12/01 2115 97.1 116 22 144/78 95 Nasal 6.0L Cannula 11/30 2004 97.0 101 18 132/78 97 Nasal 6.0L Cannula 11/30 1943 104 22 93 Nasal 6.0L Cannula 11/30 1837 97.0 101 18 138/83 94 Nasal 6.0L Cannula 11/30 1752 97.0 110 22 87 Nasal 6.0L Cannula 11/30 1708 94 Nasal 6.0L Cannula 11/30 1640 97.0 103 24 136/81 94 Nasal 6.0L Cannula 11/30 1530 Nasal 4.0L Cannula 11/30 1423 94 Nasal 2.0L Cannula 11/30 1422 108 26 164/104 94 Nasal 2.0L Cannula 11/30 1354 96.9 127 20 160/98 91 Room Air Intake & Output 12/01 1600 12/01 0800 12/01 0000 Intake Total 120 Output Total Balance 120 Intake, IV 20 Intake, Oral 100 Patient 260 lb Weight Patient is comfortable oxygen saturation 5 L 96% HNT exam shows no stridor exam for chest shows somewhat diminished breath sounds are no wheezes heard cardiac exam shows regular S1 and S2 abdomen is soft nontender extremities are without calf tenderness. Of note she had 10% eosinophilia Last 48 Hrs of Labs/Murali: Laboratory Tests 12/01/16 0637: Anion Gap 10, Estimated GFR > 60, BUN/Creatinine Ratio 15.0, CBC w Diff Pending, WBC Pending, RBC Pending, Hgb Pending, Hct Pending, MCV Pending, MCH Pending, RDW Pending, Plt Count Pending, MPV Pending, Gran % Pending, Lymphocytes % Pending, Monocytes % Pending, Eosinophils % Pending, Basophils % Pending, Absolute Granulocytes Pending, Absolute Lymphocytes Pending, Absolute Monocytes Pending, Absolute Eosinophils Pending, Absolute Basophils Pending, PUBS MCHC Pending 11/30/16 1525: pH 7.40, pCO2 35, pO2 76 L, HCO3 22, ABG O2 Sat (Measured) 95.0 L, Carboxyhemoglobin 0.3 L, O2 Concentration % 4L, O2 Delivery Method NC, Phlebotomy Draw Site RIGHT RADIAL 11/30/16 1500: Anion Gap 11, Estimated GFR > 60, BUN/Creatinine Ratio 13.8, Glucose 104 H, Calcium 10.0, Magnesium 2.0, Total Bilirubin 0.4, AST 17, ALT 36, Alkaline Phosphatase 72, Total Protein 7.1, Albumin 4.2, Globulin 2.9, Albumin/Globulin Ratio 1.4, PT 11.2, INR 1.07, APTT 33, D-Dimer < 200, CBC w Diff NO MAN DIFF REQ , RBC 5.16, MCV 82.6, MCH 27.8, RDW 14.6 H, MPV 8.0, Gran % 57.9, Lymphocytes % 25.5, Monocytes % 5.8, Eosinophils % 10.1 H, Basophils % 0.7, Absolute Granulocytes 5.9, Absolute Lymphocytes 2.6, Absolute Monocytes 0.6, Absolute Eosinophils 1.0, Absolute Basophils 0.1, PUBS MCHC 33.7 11/30/16 1417: Urine Test NEGATIVE Microbiology 11/30 2109 URINE ROUT: Legionella Antigen - COMP 11/30 2109 URINE ROUT: Streptococcus pneumoniae Antigen (M - COMP 11/30 2101 NASOPHARYN: Influenza Virus A & B Rapid Smear - COMP Assessment/Plan Impression/Plan: 21-year-old woman with history of asthma admitted with exacerbation and hypoxic respiratory failure. Chest x-ray findings may be related to resolving prior left lower lobe pneumonia. Her significant eosinophilia suggests a allergic component and formal evaluation should be obtained after discharge. Her exacerbation may well be related to poor adherence to her regimen having run out of Advair a week ago. Recommendations: Continue IV steroids and frequent nebs obtain sputum culture. Obtain chest x- ray from [facility] for comparison. Obtain sinus x-rays. Taper FiO2 with improved oxygen saturation. The chest x-ray represents resolving prior pneumonia would narrow antibiotics Consult Acknowledgment - Thank you for your consult request.
[2016-12-01 09:56] LABS: WHITE BLOOD CELL COUNT 13.9 /CUMM (4.8-10.8)
--- NOTE | 2016-12-01 11:12 | RADIOLOGY REPORT ---
EXAMINATION: XR SINUSES CLINICAL INFORMATION: Congestion. Asthma exacerbation. COMPARISON: None TECHNIQUE: 4 views of the paranasal sinuses. FINDINGS: Both maxillary sinuses are not well visualized, shows apparent partial opacity bilaterally, may represent changes secondary to technique or bilateral maxillary sinusitis. Both frontal, ethmoidal sinuses as well as the sphenoid sinuses appear unremarkable. Incidental note is made of calcified falx. IMPRESSION: Apparent partial opacity of both maxillary sinuses, may represents changes secondary to the technique or bilateral maxillary sinusitis.
--- NOTE | 2016-12-01 15:01 | PN- Att Addend ---
Attending MD Review Statement Attending Statement Attending MD Statement: examined this patient, discuss w/resident/PA/MOLDER HELPER, agreed w/resident/PA/MOLDER HELPER, reviewed EMR data (avail), discussed w/nursing Attending Assessment/Plan: Laboratory Tests 12/01/16 0637: Anion Gap 10, Estimated GFR > 60, BUN/Creatinine Ratio 15.0, CBC w Diff NO MAN DIFF REQ, RBC 5.16, MCV 82.9, MCH 27.4, RDW 14.6 H, MPV 8.1, Gran % 90.5 H, Lymphocytes % 7.5 L, Monocytes % 1.8, Eosinophils % 0.1, Basophils % 0.1, Absolute Granulocytes 12.6 H, Absolute Lymphocytes 1.0 L, Absolute Monocytes 0.2, Absolute Eosinophils 0, Absolute Basophils 0, PUBS MCHC 33.1 11/30/16 1525: pH 7.40, pCO2 35, pO2 76 L, HCO3 22, ABG O2 Sat (Measured) 95.0 L, Carboxyhemoglobin 0.3 L, O2 Concentration % 4L, O2 Delivery Method NC, Phlebotomy Draw Site RIGHT RADIAL Microbiology 11/30 2109 URINE ROUT: Legionella Antigen - COMP 11/30 2109 URINE ROUT: Streptococcus pneumoniae Antigen (M - COMP 11/30 2101 NASOPHARYN: Influenza Virus A & B Rapid Smear - COMP Vital Signs Date Time Temp Pulse Resp B/P Pulse O2 O2 Flow FiO2 Ox Delivery Rate 12/01 1238 94 Nasal 3.0L Cannula 12/01 1130 Nasal 3.0L Cannula 12/01 1000 94 Nasal 4.0L Cannula 12/01 0830 95 Nasal 5.0L Cannula 12/01 0800 94 Nasal 4.0L Cannula 12/01 0731 97.4 102 20 140/70 96 Nasal 5.0L Cannula 12/01 0000 Nasal 5.0L Cannula 11/30 2341 97.9 117 20 134/60 95 Nasal 5.0L Cannula 11/307 96 Nasal 6.0L Cannula 12/01 2115 97.1 116 22 144/78 95 Nasal 6.0L Cannula 11/30 2004 97.0 101 18 132/78 97 Nasal 6.0L Cannula 11/30 1943 104 22 93 Nasal 6.0L Cannula 11/30 1836 97.0 101 18 138/83 94 Nasal 6.0L Cannula 03/29 1752 97.0 110 22 87 Nasal 6.0L Cannula 11/30 1708 94 Nasal 6.0L Cannula 11/30 1640 97.0 103 24 136/81 94 Nasal 6.0L Cannula 11/30 1530 Nasal 4.0L Cannula 21-year-old female admitted with asthma exacerbation. Her wheezing is better today so we'll decrease her Solu-Medrol to 40 mg IV every 12 hours. Sinus x- rays done were equivocal. We will get records from [facility] as patient was admitted [facility] at the beginning of the year for asthma exacerbation. Discussed with patient the care plan. If stable tomorrow from respiratory standpoint we'll discharge her home.
[2016-12-01 15:44] VITALS: BP 120/60
--- NOTE | 2016-12-01 17:18 | Patient Discharge Instructions ---
Discharge Instructions General Discharge Information You were seen/treated for: Asthma exacerbation Special Instructions: Please finish Prednisone taper as instructed. Please usual medications as prescribed, and refill it before it runs out. Please use your rescue inhaler/albuterol inhaler when ever you feel short of breath. Please follow-up with your lung doctor within 7-10 days of discharge. Please visit your primary care physician within 7-10 days of discharge. Return to emergency if symptoms worsen. Diet Continue normal diet: Yes Recommended Diet: Heart Healthy Activity Full Activity/No Limits: Yes Acute Coronary Syndrome Inclusion Criteria At DC or during hospital stay patient has or had the following: ACS DIAGNOSIS No Discharge Core Measures Meds if any: Prescribed or Continued at Discharge Meds if any: NOT Prescribed or Continued at Discharge Congestive Heart Failure Inclusion Criteria At DC or during hospital stay patient has or had the following: CHF DIAGNOSIS No Discharge Core Measures Meds if any: Prescribed or Continued at Discharge Meds if any: NOT Prescribed or Continued at Discharge Cerebrovascular accident Inclusion Criteria At DC or during hospital stay patient has or had the following: CVA/TIA Diagnosis No Discharge Core Measures Meds if any: Prescribed or Continued at Discharge Meds if any: NOT Prescribed or Continued at Discharge Venous thromboembolism Inclusion Criteria VTE Diagnosis No VTE Type NONE VTE Confirmed by (Test) NONE Discharge Core Measures - Per Current guidelines, there needs to be overlap - treatment for the first 5 days of Warfarin therapy. - If discharged on Warfarin prior to 5 days of - overlap therapy, the patient will need to be - assessed for post discharge needs including - *Post discharge parental anticoagulation - *Warfarin and/or parental anticoagulation education - *Follow up date to check INR post discharge At least 5 days overlap therapy as Inpatient No Meds if any: Prescribed or Continued at Discharge Note: Overlap Therapy is Warfarin and Anticoagulant Meds if any: NOT Prescribed or Continued at Discharge
[2016-12-01 23:04] VITALS: BP 130/88
--- NOTE | 2016-12-02 07:12 | PN- Housestaff ---
Subjective Follow-up For: Asthma exacerbation Complaints: no complaints Subjective: I followed up and examined the patient today. She is not in any acute distress, does not have any complaints, no issues overnight. Vitals have been stable, but she is still on oxygen via nasal cannula at 1 L/m. Review of Systems Constitutional: Reports: no symptoms. Cardiovascular: Reports: no symptoms. Respiratory: Reports: see HPI. Gastrointestinal: Reports: no symptoms. Objective Last 24 Hrs of Vital Signs/I&O Vital Signs Date Time Temp Pulse Resp B/P Pulse O2 O2 Flow FiO2 Ox Delivery Rate 12/02 1427 98.6 90 20 130/76 93 Room Air 12/02 0844 93 Nasal 1.0L Cannula 12/02 0800 96 Nasal 1.0L Cannula 12/02 0731 97.5 110 20 132/78 95 Nasal Cannula 12/02 0000 96 Nasal 1.0L Cannula 12/01 2304 97.9 105 20 130/88 95 Nasal 1.0L Cannula 12/01 1640 96 Nasal 2.0L Cannula Intake & Output 12/02 1600 12/02 0800 12/02 0000 Intake Total 900 310 310 Output Total Balance 900 310 310 Intake, IV 300 10 10 Intake, Oral 600 300 300 Number 0 0 Bowel Movements Physical Exam General Appearance: Alert, Oriented X3, Cooperative Other Physical Findings: General: obese patient, not in resp distress Head: Normocephalic, atraumatic Eyes: Pupils normal in size, regular, reacting to light and accommodation, EOM normal Ears: B/l normal on inspection Nose: Normal on inspection Throat/mouth: Moist mucosa Neck: Supple, full range of motion, no thyromegaly Heart: Regular rate, regular rhythm Lung: breath sound bilaterally with wheezes present but less than yesterday Abd: Soft, non-tender, no distention appreciated Back: Normal range of motion Extremities: Normal knee exam bilaterally, no pedal edema, Distal neurovascular intact Neurologic: Alert, oriented x3, Cranial exam grossly intact, Speech is clear and coherent Skin: Warm and dry Psychiatric: Calm, cooperative, coherant Current Medications: Current Medications Sig/Mohinder Start time Last Medication Dose Route Stop Time Status Admin Acetaminophen 325 MG Q6P PRN 11/30 1730 AC PO Albuterol Sulfate 3 ML EVERY 4 HRS/AWAKE 12/01 1200 AC 12/02 INH 1141 Albuterol Sulfate 2 PUF Q4-6 PRN PRN 11/30 2000 AC INH Azithromycin 500 MG DAILY 12/01 1000 AC 12/02 Sodium Chloride 250 ML IV 1030 Ceftriaxone Sodium 1,000 MG DAILY 12/01 1000 AC 12/02 IV 1029 Enoxaparin Sodium 40 MG DAILY 11/30 1725 AC 12/02 SC 1030 Estradiol 2 MG DAILY 12/01 1000 AC 12/02 PO 1030 Fluticasone 2 SPRAY DAILY 12/02 1000 AC 12/02 Propionate OSIRIS 1417 Ipratropium [place] 2.5 ML EVERY 4 HRS/AWAKE 12/01 1200 AC 12/02 INH 1614 Methylprednisolone 40 MG Q12 12/01 2200 DC 12/01 IV 2102 Morphine Sulfate 2 MG Q4P PRN 11/30 1730 AC IV Oxycodone HCl 5 MG Q6P PRN 11/30 1730 AC PO Patient Medication 1 ED .STK-MED ONE 12/02 1359 AK Teaching ED 12/02 1400 Prednisone 40 MG ONCE ONE 12/03 0900 AC PO 12/03 0901 Prednisone 40 MG DAILY 12/02 1000 AC 12/02 PO 1031 Last 24 Hrs of Lab/Murali Results Last 24 Hrs of Labs/Mics: Laboratory Tests 12/02/16 0710: CBC w Diff NO MAN DIFF REQ, RBC 4.97, MCV 83.7, MCH 27.4, RDW 14.8 H, MPV 8.3, Gran % 84.1 H, Lymphocytes % 12.1 L, Monocytes % 3.6, Eosinophils % 0, Basophils % 0.2, Absolute Granulocytes 13.8 H, Absolute Lymphocytes 2.0, Absolute Monocytes 0.6, Absolute Eosinophils 0, Absolute Basophils 0, PUBS MCHC 32.7 L Assessment/Plan Assessment: 21-year-old female with past medical history of asthma and a recent admission for pneumonia 2 months ago, came into the emergency department with history of 2 days of worsening shortness of breath, productive cough. She was tachycardic to 127, tachypneic at 20, blood pressure was 160/98, temperature 96.9 and was saturating at 76% on room air upon admission to the emergency department, her ABG showed hypoxia with PO2 of 76, lab was only significant for high eosinophilia 10.1%, no leukocytosis.Chest x-ray is consistent with early left base infiltrate, suggestive of pneumonia. Blood and sputum cultures were sent. Patient received nebulizations, magnesium sulfate, IV antibiotics in the emergency department. Patient is currently being managed in the general medical floor for the following issues: #Acute hypoxic respiratory failure, secondary to asthma exacerbation and possible community-acquired pneumonia Patient seems better today, with decreased wheezes, and no respiratory distress anymore. Her total WBC count is 16.4, an increase from 13.9 yesterday, which can be partly explained by the use of steroids. -Pulmonary consultation with Dr. Meza following. Flonase started. Will not pursue CT sinus in this inpatient setting. -[place] O2 saturation above 92% -Continue total respiratory care/nebs -Continue IV antibiotics to cover community-acquired pneumonia for now -On oral steroids now -Follow up blood and sputum cultures and plan to taper antibiotics accordingly -Pulmonary consultation appreciated #Diet regular diet #DVT prophylaxis subcutaneous Lovenox #Full CODE STATUS Problem List: 1. Asthma exacerbation Pain Ratin Pain Location: - Pain Goal: Remain pain free Pain Plan: prn Tomorrow's Labs & Rationales: CBC, and plan to DC tomorrow
[2016-12-02 07:31] VITALS: BP 132/78
--- NOTE | 2016-12-02 07:53 | PN- Pulmonary ---
Subjective HPI/Critical Care Issues: Patient feels improved shortness breath and cough are improved oxygenation is improved. Sinus x-rays suggest possibility of bilateral maxillary sinus disease. Objective Current Medications: Current Medications Sig/Mohinder Start time Last Medication Dose Route Stop Time Status Admin Acetaminophen 325 MG Q6P PRN 11/30 1730 AC PO Albuterol Sulfate 3 ML EVERY 4 HRS/AWAKE 12/01 1200 AC 12/01 INH 2030 Albuterol Sulfate 2 PUF Q4-6 PRN PRN 11/30 2000 AC INH Albuterol Sulfate 3 ML Q4P PRN 11/30 2000 DC INH Azithromycin 500 MG DAILY 12/01 1000 AC 12/01 Sodium Chloride 250 ML IV 1040 Ceftriaxone Sodium 1,000 MG DAILY 12/01 1000 AC 12/01 IV 1039 Enoxaparin Sodium 40 MG DAILY 11/30 1725 AC 12/01 SC 1040 Estradiol 2 MG DAILY 12/01 1000 AC 12/01 PO 1040 Influenza Virus 0.5 ML ONCE ONE 12/01 1200 DC Vaccine IM 12/01 1201 Ipratropium [place] 2.5 ML EVERY 4 HRS/AWAKE 12/01 1200 AC 12/01 INH 2030 Methylprednisolone 40 MG Q12 12/01 2200 AC 12/01 IV 2102 Methylprednisolone 40 MG Q8 11/30 2200 DC 12/01 IV 0632 Morphine Sulfate 2 MG Q4P PRN 11/30 1730 AC IV Oxycodone HCl 5 MG Q6P PRN 11/30 1730 AC PO Patient Medication 1 ED .STK-MED ONE 12/01 1358 DC Teaching ED 12/01 1359 Vital Signs & I&O Last 24 Hrs of Vitals and I&O: Vital Signs Date Time Temp Pulse Resp B/P Pulse O2 O2 Flow FiO2 Ox Delivery Rate 12/02 0731 97.5 110 20 132/78 95 Nasal Cannula 12/02 0000 96 Nasal 1.0L Cannula 12/01 2304 97.9 105 20 130/88 95 Nasal 1.0L Cannula 12/01 1640 96 Nasal 2.0L Cannula 12/01 1600 Nasal 1.0L Cannula 12/01 1544 97.4 108 22 120/60 93 12/01 1238 94 Nasal 3.0L Cannula 12/01 1130 Nasal 3.0L Cannula 12/01 1000 94 Nasal 4.0L Cannula 12/01 0830 95 Nasal 5.0L Cannula 12/01 0800 94 Nasal 4.0L Cannula Intake & Output 12/02 0800 12/02 0000 12/01 1600 Intake Total 310 310 650 Output Total Balance 310 310 650 Intake, IV 10 10 250 Intake, Oral 300 300 400 Number 0 0 Bowel Movements Oxygen saturation 1 L 95% exam for chest shows absent wheezing cardiac exam shows normal S1 and S2 without murmurs. Impression/Plan Impression/Plan Impression/Plan: 21-year-old woman with history of asthma admitted with exacerbation and hypoxic respiratory failure. Chest x-ray findings may be related to resolving prior left lower lobe pneumonia. Her significant eosinophilia suggests a allergic component and formal evaluation should be obtained after discharge. Her exacerbation may well be related to poor adherence to her regimen having run out of Advair a week ago. Patient is clinically improved. Recommendations: DC 02 and assess room air oxygen saturations. Follow-up sputum C&S. Review sinus x-rays and if issue remains unclear CT scan sinuses. Transition to by mouth prednisone later today with expectation for discharge tomorrow
[2016-12-02 09:26] LABS: ABSOLUTE BASOPHIL COUNT 0 /CUMM (0.0-0.2); ABSOLUTE EOSINOPHIL COUNT 0 /CUMM (0.0-0.7); ABSOLUTE GRANULOCYTE CT 13.8 /CUMM (1.4-6.5); ABSOLUTE MONOCYTE COUNT 0.6 /CUMM (0.10-0.60); BASOPHIL % 0.2 % (0.0-2.0); EOSINOPHIL % 0 % (0-5); HEMATOCRIT 41.6 % (37-47); MEAN CORPUSCULAR HGB 27.4 PG (27.0-31.0); MEAN CORPUSCULAR HGB CONC 32.7 G/DL (33.0-37.0); MEAN CORPUSCULAR VOLUME 83.7 FL (81.0-99.0); MEAN PLATELET VOLUME 8.3 FL (7.4-10.4); RBC DISTRIBUTION WIDTH 14.8 % (11.5-14.5); RED BLOOD CELL CT 4.97 /CUMM (4.20-5.40); WHITE BLOOD CELL COUNT 16.4 /CUMM (4.8-10.8)
[2016-12-02 10:17] LABS: PLATELET COUNT 359 /CUMM (130-400)
[2016-12-02 10:18] LABS: GRANULOCYTE % 84.1 % (42.2-75.2)
[2016-12-02] MEDS ORDERED: PREDNISONE10 M2 PO ×2 (14:04→15:29)
[2016-12-02 14:27] VITALS: BP 130/76
--- NOTE | 2016-12-02 15:19 | PN- Att Addend ---
Attending MD Review Statement Attending Statement Attending MD Statement: examined this patient, discuss w/resident/PA/DISTRICT CAPTAIN, agreed w/resident/PA/DISTRICT CAPTAIN, reviewed EMR data (avail), discussed w/nursing Attending Assessment/Plan: Laboratory Tests 12/02/16 0710: CBC w Diff NO MAN DIFF REQ, RBC 4.97, MCV 83.7, MCH 27.4, RDW 14.8 H, MPV 8.3, Gran % 84.1 H, Lymphocytes % 12.1 L, Monocytes % 3.6, Eosinophils % 0, Basophils % 0.2, Absolute Granulocytes 13.8 H, Absolute Lymphocytes 2.0, Absolute Monocytes 0.6, Absolute Eosinophils 0, Absolute Basophils 0, PUBS MCHC 32.7 L Vital Signs Date Time Temp Pulse Resp B/P Pulse O2 O2 Flow FiO2 Ox Delivery Rate 12/02 1427 98.6 90 20 130/76 93 Room Air 12/02 0844 93 Nasal 1.0L Cannula 12/02 0800 96 Nasal 1.0L Cannula 12/02 0731 97.5 110 20 132/78 95 Nasal Cannula 12/02 0000 96 Nasal 1.0L Cannula 12/01 2304 97.9 105 20 130/88 95 Nasal 1.0L Cannula 12/01 1640 96 Nasal 2.0L Cannula 12/01 1600 Nasal 1.0L Cannula 12/01 1544 97.4 108 22 120/60 93 21-year-old female admitted with asthma exacerbation. Her wheezing is better today so we'll change her Solu-Medrol to po 40 mg prednisone. Sinusitis-we have started her on Flonase. Patient is doing better by tomorrow will be discharged home on prednisone taper as well as Flonase and will follow up with pulmonology clinic for further management. Discussed with patient and her family at bedside the care plan. We will also do ambulatory oxygen evaluation prior to discharge.
[2016-12-02] MEDS ORDERED: FLUTICASONE PRO16 GM NAS (15:30)
[2016-12-02 23:17] VITALS: BP 126/64
[2016-12-03 07:18] VITALS: BP 126/78
[2016-12-03 08:17] LABS: ABSOLUTE BASOPHIL COUNT 0.1 /CUMM (0.0-0.2); ABSOLUTE EOSINOPHIL COUNT 0.2 /CUMM (0.0-0.7); ABSOLUTE GRANULOCYTE CT 5.8 /CUMM (1.4-6.5); ABSOLUTE LYMPH COUNT 4.6 /CUMM (1.2-3.4); BASOPHIL % 0.6 % (0.0-2.0); EOSINOPHIL % 2.1 % (0-5); GRANULOCYTE % 49.3 % (42.2-75.2); MEAN CORPUSCULAR HGB 27.5 PG (27.0-31.0); MEAN CORPUSCULAR HGB CONC 32.8 G/DL (33.0-37.0); MEAN CORPUSCULAR VOLUME 83.7 FL (81.0-99.0); MEAN PLATELET VOLUME 7.8 FL (7.4-10.4); PLATELET COUNT 318 /CUMM (130-400); RBC DISTRIBUTION WIDTH 14.3 % (11.5-14.5); RED BLOOD CELL CT 4.67 /CUMM (4.20-5.40)
[2016-12-03 09:24] LABS: WHITE BLOOD CELL COUNT 11.7 /CUMM (4.8-10.8)
--- NOTE | 2016-12-03 10:57 | PN- Housestaff ---
Subjective Follow-up For: Asthma Exacerbation Subjective: Patient is seen and examined at bedside. Patient does not endorse any acute complaints include increased shortness of breath, fever, chills, nausea, vomiting, chest pain, abdominal pain or dysuria. NO Acute overnight event reported by nursing staff. She is eager for discharge. Review of Systems Constitutional: Reports: no symptoms. Objective Last 24 Hrs of Vital Signs/I&O Vital Signs Date Time Temp Pulse Resp B/P Pulse O2 O2 Flow FiO2 Ox Delivery Rate 12/03 08 Room Air 12/03 0749 97 Room Air 12/03 0718 97.6 80 20 126/78 95 Room Air 12/02 2317 98.1 99 20 126/64 96 Room Air 12/02 2018 96 Room Air 12/02 1634 96 Nasal 2.0L Cannula 12/02 1600 95 Nasal 1.0L Cannula 12/02 1427 98.6 90 20 130/76 93 Room Air Intake & Output 12/03 1600 12/03 0800 12/03 0000 Intake Total 250 480 Output Total Balance 250 480 Intake, IV 10 Intake, Oral 240 480 Physical Exam General Appearance: Alert, Oriented X3, Cooperative HEENT: Atraumatic, Mucous Membr. moist/pink Neck: Supple, No JVD Cardiovascular: Regular Rate, Normal S1, Normal S2, No Murmurs Lungs: Clear to Auscultation, Normal Air Movement Abdomen: Normal Bowel Sounds, Soft, No Tenderness, No Hepatospenomegaly Neurological: Normal Speech, Strength at 5/5 X4 Ext Assessment/Plan Assessment: 21-year-old female with past medical history of asthma and a recent admission for pneumonia 2 months ago, came into the emergency department with history of 2 days of worsening shortness of breath, productive cough. She was tachycardic to 127, tachypneic at 20, blood pressure was 160/98, temperature 96.9 and was saturating at 76% on room air upon admission to the emergency department, her ABG showed hypoxia with PO2 of 76, lab was only significant for high eosinophilia 10.1%, no leukocytosis.Chest x-ray is consistent with early left base infiltrate, suggestive of pneumonia. Blood and sputum cultures were sent. Assessment and plan #Acute hypoxic respiratory failure, secondary to asthma exacerbation and possible community-acquired pneumonia Patient clinically improving with no apparent respiratory distress, saturating well on room air, and marked improvement of white blood cell count. Patient is stable for discharge today [place] sent home with a rapid prednisone taper. Problem List: 1. Asthma exacerbation Pain Ratin Pain Location: none Pain Goal: Remain pain free Pain Plan: per pain pathwy Tomorrow's Labs & Rationales: none-discharge #Full CODE STATUS Problem List: 1. Asthma exacerbation Pain Ratin Pain Location: none Pain Goal: Remain pain free Pain Plan: per pain pathwy Tomorrow's Labs & Rationales: none-discharge
--- NOTE | 2016-12-03 22:10 | Discharge Summary ---
Visit Information Visit Dates Admission Date: 11/30/16 Discharge Date: 12/03/16 Hospital Course Course Attending Physician: PORSCHE FRENCH,JIGNESH Burks Primary Care Physician: SHEYLA NOBLES MD Consulting Request: Consulting Specialty: Pulmonary Disease Consulting Physician: Dr Hao Meza Reason for Consult: Acute hypoxic respiratory failure Hospital Course: 21-year-old female with past medical history of asthma and a recent admission for pneumonia 2 months ago, came into the emergency department with history of 2 days of worsening shortness of breath, productive cough. She was tachycardic to 127, tachypneic at 20, blood pressure was 160/98, temperature 96.9 and was saturating at 76% on room air upon admission to the emergency department, her ABG showed hypoxia with PO2 of 76, lab was only significant for high eosinophilia 10.1%, no leukocytosis. Chest x-ray is consistent with early left base infiltrate, suggestive of pneumonia. Influenza, strep and Legionella rapid tests were negative. Blood and sputum cultures were sent. Patient received nebulizations, magnesium sulfate, IV antibiotics in the emergency department. She was managed in the general medical floor for following issues: #Acute hypoxic respiratory failure, secondary to asthma exacerbation, possible community-acquired pneumonia Patient was in respiratory distress, evident clinically as well as from the ABGs and her lab studies, but did not have increased WBC count, as history of asthma, and her inhaler had recently run out and she was only using her rescue inhaler as an alternative. All this added to the cause of acute hypoxic respiratory failure. And she was managed with total respiratory care's, nebulizations, initially IV steroids, later oral steroids and was discharged with oral prednisone quick taper. She was followed by director digital marketing Dr. Reilly, who also screened her for sinusitis due to her chronic congestive symptoms with x-ray and was considering CT scan as an outpatient. Her respiratory symptoms did improve after the treatment. Of note, she did receive a short course of IV antibiotics once he was in the hospital. Of note, she had a recent history of pneumonia that was treated at [facility], records of which were requested and obtained. Chest x-ray might be a remnant of what she already had when she was admitted in [facility]. He also, patient needs to follow-up with Dr. Reilly, director digital marketing, and her primary care physician Dr. Nobles after she is discharged. She has been provided with referrals accordingly. #She had a regular diet, DVT prophylaxis was given via subcutaneous Lovenox, and she holds a full CODE STATUS. Allergies: Coded Allergies: nut - unspecified (Mild, RASH 11/30/16) Uncoded Allergies: TREES DOGS CATS (RASH ON FACE 02/13/15) Pertinent Lab Results: IMPRESSION: Findings are consistent with an early left base infiltrate. Recommend short-term follow-up chest radiographs to ensure clearance. A preliminary report was provided by the physical therapy resident on 11/30/2016. DICTATED BY: JESSIE GAFFNEY MD DATE/TIME DICTATED:11/30/161499 [employer]:LULA DATE/TIME TRANSCRIBED:11/30/161499 IMPRESSION: Apparent partial opacity of both maxillary sinuses, may represents changes secondary to the technique or bilateral maxillary sinusitis. DICTATED BY: AZUCENA CROWLEY MD DATE/TIME DICTATED:12/01/161104 [employer]:GERBER DATE/TIME TRANSCRIBED:12/01/161104 Disposition Summary Disposition Principal Diagnosis: Asthma exacerbation Additional Diagnosis: Morbid obesity Discharge Disposition: home or self care Discharge Instructions General Discharge Information Code Status: Full Code Patient's Diet: Healthy healthy diet Patient's Activity: As tolerated Follow-Up Instructions/Appts: Please finish Prednisone taper as instructed. Please usual medications as prescribed, and refill it before it runs out. Please use your rescue inhaler/albuterol inhaler when ever you feel short of breath. Please follow-up with your lung doctor within 7-10 days of discharge. Please visit your primary care physician within 7-10 days of discharge. Return to emergency if symptoms worsen. Medications at Discharge Discharge Medications: Continue taking these medications: Estradiol (Estrace) 2 MG TABLET 1 Tablet ORAL DAILY Comments: Last Taken: 12/03/16 Time: 10AM Albuterol Sulfate (Proair Hfa) 90 MCG HFA.AER.AD 2 Puff Inhale through mouth EVERY 4-6 HOURS NEEDED as needed for BREATHING PROBLEMS Comments: NOT GIVEN IN HOSPITAL Albuterol Sulfate (Albuterol Sulfate) 2.5 MG/3 ML (0.083 %) VIAL.NEB 1 Vial Inhale Solution EVERY 4 HOURS NEEDED as needed for BREATHING PROBLEMS Comments: Last Taken: 12/03/16 Time: 8AM Prednisone (Prednisone) 10 MG TABLET 1 Tablet ORAL SEE INSTRUCTIONS Qty = 24 Instructions: TAKE 4 TABS( 40mg) on 12/04/16 TAKE 3 TABS (30mg) from 12/05 - 12/07 TAKE 2 TABS (20 mg) from 12/08 - 12/10 TAKE 1 TAB (10mg) from 12/11 - 12/13.. then stop This prescription has been renewed Start taking the following new medications: Fluticasone Propionate (Fluticasone Propionate) 50 MCG/ACTUATION SPRAY.SUSP 2 [place] In the nose DAILY as needed for sinus congestion Qty = 1 No Refills Comments: Last Taken: 12/03/16 Time: 10AM Prednisone (Prednisone) 10 MG TABLET 1 Tablet ORAL See Instructions Qty = 26 No Refills Instructions: TAKE 4 TABS ONCE DAILY FOR TWO DAYS, THEN TAKE 3 TABS ONCE DAILY FOR THREE DAYS, THEN TAKE 2 TABS ONCE DAILY FOR THREE DAYS, THEN TAKE 1 TAB ONCE DAULY FOR THREE DAYS, THEN STOP. Comments: Last Taken: 12/03/16 Time: 10AM Copies To: MALLORIE FRENCH,[facility]; DYAN FRENCH,HAO Love MD Review Statement Documenting Attending: PORSCHE FRENCH,JIGNESH Burks Other Findings: Please see my attending note for more details. Agree with the above discharge plan.
== END 2016-12-03 12:11 | DRG 202 ==
LOC: ENRESERVTM → ENRESERVDT → ERH 13:52 → ERHI 15:10 → 2NA 15:10 → ENPENDDIS 15:10 → 2NA 22:21
PROVIDERS: Physician Assistant; Student in an Organized Health Care Education/Training Program; ADMIT Internal Medicine
DX: J45.901 Unspecified asthma with (acute) exacerbation (principal); J96.01 Acute respiratory failure with hypoxia; J18.9 Pneumonia, unspecified organism; Z68.42 Body mass index [BMI] 45.0-49.9, adult; E66.01 Morbid (severe) obesity due to excess calories; Z82.5 Family history of asthma and other chronic lower respiratory diseases
CPT/HCPCS: 2NAP; 36415; 70220; 81025; 82436; 87040; 87070; 87449; 87450; 87804; 87804-59; 93005; 93010; 96374; 99291; J0456; J0696; J1200; J1650; J2920; J2930; J3490; J7040; Q2036